=== PATIENT | female | born 1980 | race American Indian/Alaskan Native ===

== ENCOUNTER 2018-06-25 10:51 | Emergency (ER) | payer SELFPAY ==
[2018-06-25 11:17] VITALS: BP 111/75
--- NOTE | 2018-06-25 11:19 | Emergency Department Report ---
Chief Complaint: Skin/Abscess/Foreign Body Stated Complaint: NECK PAIN Time Seen by Provider: 06/25/18 11:17 - HPI History of Present Illness: purulent discharge from under pts welexis. she thinks its a bite because was camping this weekend - Exam Vital Signs: Vital Signs 06/25/18 11:14 Temperature 98.3 F Pulse Rate 92 H Respiratory 20 Rate Blood Pressure 111/75 [Right] O2 Sat by Pulse 100 Oximetry MSE screening note: Focused history and physical exam performed. Due to findings the following was ordered: ED Disposition for MSE Condition: Stable
== END 2018-06-25 16:51 | disposition left against medical advice (07) ==
LOC: ED 10:51
DX: M54.2 Cervicalgia (principal); Z53.21 Procedure and treatment not carried out due to patient leaving prior to being seen by health care provider